=== PATIENT | female | born 1970 | race Caucasian/White ===

== ENCOUNTER 2018-02-26 04:56 | Day surgery (SDC) | END 2018-02-26 15:19 | disposition home or self-care (01) ==

== ENCOUNTER 2019-04-24 06:51 | Emergency (ER) | payer OTHER ==
[~2019-04-24] VITALS: Ht 160 cm; Wt 53.0 kg
[~2019-04-24 06:51] MED LIST: ACET-141 PO
[2019-04-24 06:54] VITALS: BP 113/52; PULSE 65; RESP 18; Ht 160 cm; Wt 53.0 kg
[2019-04-24] MEDS ORDERED: KETOROLAC 30 MG INJ IM STA (07:11)
== END 2019-04-24 08:41 | disposition home or self-care (01) ==
LOC: FTE 06:51
DX: M25.512 Pain in left shoulder (principal)
CPT/HCPCS: 73030; 81025; 96372; 99284; J1885